=== PATIENT | female | born 1990 | race Caucasian/White ===

== ENCOUNTER 2017-12-31 15:52 | Emergency (ER) | payer BC, MEDICAID, OTHER ==
[~2017-12-31] VITALS: Ht 162.6 cm; Wt 68.1 kg
[~2017-12-31 15:52] MED LIST: ALBU8.5H8 INH; TRAM50TA2 PO
[2017-12-31 16:06] VITALS: BP 131/88
[2017-12-31] MEDS ORDERED: TRAM50TA2 PO (16:41)
[2017-12-31] MEDS ORDERED: ibuprofen tablet 400 MG TABLET PO ONE (17:15)
== END 2017-12-31 17:06 | disposition home or self-care (01) ==
LOC: ER 15:52
DX: S92.512A Displaced fracture of proximal phalanx of left lesser toe(s), initial encounter for closed fracture (principal); J45.909 Unspecified asthma, uncomplicated; Z88.6 Allergy status to analgesic agent; W22.03XA Walked into furniture, initial encounter; Y93.89 Activity, other specified; Y92.89 Other specified places as the place of occurrence of the external cause; Y99.8 Other external cause status
CPT/HCPCS: 73630; 99284

== ENCOUNTER 2018-04-03 19:40 | Emergency (ER) | payer MEDICAID ==
[~2018-04-03] VITALS: Ht 165.1 cm; Wt 70.5 kg
[2018-04-03] MEDS ORDERED: ondansetron/PF 4mg/2ml inj IV ONE (20:00)
[2018-04-03] MEDS ORDERED: normal saline 1000ML IV soln IVB ONE (20:00)
[2018-04-03 20:04] LABS: BASOPHILS % (AUTO) 0.3 % (0-1); EOSINOPHILS # (AUTO) 0.2 X10'3 (0-0.9); EOSINOPHILS % (AUTO) 1.4 % (0-6); HEMATOCRIT 39.7 % (35.0-45.0); HEMOGLOBIN 13.5 g/dl (12.0-16.0); LYMPHOCYTES # (AUTO) 2.4 X10'3 (1.1-4.8); LYMPHOCYTES % (AUTO) 21.2 % (21-51); MEAN CORPUSCULAR HEMOGLOBIN 28.8 PG (27.0-31.0); MEAN CORPUSCULAR VOLUME 84.8 FL (78-98); MEAN PLATELET VOLUME 8.3 FL (7.4-10.4); MONOCYTES # (AUTO) 0.7 X10'3 (0-0.9); MONOCYTES % (AUTO) 5.8 % (2-12); NEUTROPHILS # (AUTO) 8.1 X10'3 (1.8-7.7); NEUTROPHILS % (AUTO) 71.3 % (42-75); PLATELET COUNT 271 X10'3 (140-440); RED BLOOD COUNT 4.68 X10'6 (4.20-5.60); RED CELL DISTRIBUTION WIDTH 12.1 % (11.5-14.5); WHITE BLOOD COUNT 11.4 X10'3 (4.5-11.0)
[2018-04-03] MEDS ORDERED: iohexol 350MG/ML 100ml bottle IV ONE (20:08)
[2018-04-03 20:13] LABS: ALANINE AMINOTRANSFERASE 27 U/L (12-78); ALBUMIN/GLOBULIN RATIO 1.1 (1.1-1.5); ALKALINE PHOSPHATASE 48 IU/L (46-116); ANION GAP 12 (8-16); ASPARTATE AMINO TRANSFERASE 22 U/L (10-37); BILIRUBIN,TOTAL 0.2 MG/DL (0.1-1.0); BLOOD UREA NITROGEN 14 MG/DL (7-18); BUN/CREATININE RATIO 17.7 (6.6-38.0); CALCIUM 8.6 MG/DL (8.5-10.1); CHLORIDE 101 MMOL/L (99-107); CREATININE 0.79 MG/DL (0.40-0.90); GLUCOSE 122 MG/DL (70-104); POTASSIUM 3.8 MMOL/L (3.5-5.1); SODIUM 138 MMOL/L (135-145); TOTAL CARBON DIOXIDE 24.9 MMOL/L (24-32); TOTAL PROTEIN 7.7 G/DL (6.4-8.2); eGFR 87 ML/MIN
[2018-04-03 20:36] LABS: CLARITY,URINE CLEAR (Clear); COLOR,URINE YELLOW (Yellow); GLUCOSE, URINE NEGATIVE (Neg); KETONES,URINE NEGATIVE (Neg); LEUKOCYTE ESTERASE ,URINE NEGATIVE (Neg); NITRITES, URINE NEGATIVE (Neg); OCCULT BLOOD,URINE NEGATIVE (Neg); PROTEIN,URINE NEGATIVE (Neg); UROBILINOGEN,URINE 0.2 E.U/dL (0.2-1.0)
[2018-04-03 20:39] LABS: URINE HCG NEGATIVE (NEG)
[2018-04-03 20:48] LABS: UA COLLECTION TYPE CLN CATCH MIDSTREAM
[2018-04-03] MEDS ORDERED: dexamethasone sod phosphate 10mg/ml inj IV STA (21:08)
[2018-04-03] MEDS ORDERED: LORazepam 2 mg/ml vial IV ONE (21:10)
[2018-04-03] MEDS ORDERED: ketorolac trometh. 30mg/ml inj. IV ONE (21:10)
[2018-04-03] MEDS ORDERED: metoclopramide 5 mg/ml inj IV ONE (21:10)
[2018-04-03] MEDS ORDERED: ONDA4TAB6 PO (21:45)
[2018-04-03] MEDS ORDERED: KETO10TA2 PO (21:45)
[2018-04-03] MEDS ORDERED: SUMA100T PO (21:45)
[2018-04-03 21:58] VITALS: BP 112/61
== END 2018-04-03 21:59 | disposition home or self-care (01) ==
LOC: ER 19:41 → EEVIPCON 19:41 → ER 21:59
DX: G43.109 Migraine with aura, not intractable, without status migrainosus (principal); R42 Dizziness and giddiness; R53.1 Weakness; J45.909 Unspecified asthma, uncomplicated; Z88.5 Allergy status to narcotic agent; Z79.899 Other long term (current) drug therapy
CPT/HCPCS: 36415; 70496; 80053; 81003; 81025; 84443; 85025; 96361; 96374; 96375; 99284; J1100; J1885; J2060; J2405; J2765; J7030; Q9967

== ENCOUNTER 2019-01-24 13:13 | Emergency (ER) | payer OTHER, MEDICAID ==
[~2019-01-24] VITALS: Ht 165.1 cm; Wt 70.5 kg
[~2019-01-24 13:13] MED LIST changes: +KETO10TA2 PO; +ONDA4TAB6 PO
[2019-01-24] MEDS ORDERED: diphenhydrAMINE 50 mg/ml inj IV ONE (13:30)
[2019-01-24] MEDS ORDERED: ketorolac trometh inj. 60 MG/2 ML VIAL IM ONE (13:30)
[2019-01-24] MEDS ORDERED: cloNIDine 0.1 mg tablet PO ONE (13:30)
[2019-01-24] MEDS ORDERED: LORazepam 1 MG tablet PO ONE (13:30)
[2019-01-24] MEDS ORDERED: metoclopramide 5 mg/ml inj IM ONE (13:30)
[2019-01-24] MEDS ORDERED: normal saline 1000ml 1,000 ML IV ONE (14:30)
[2019-01-24 15:02] VITALS: BP 117/69
--- NOTE | 2019-01-24 15:19 | NUR ---
PT FEELING MUCH BETTER, READY TO GO HOME. FAMILY AT BEDSIDE FOR RIDE HOME.
== END 2019-01-24 15:24 | disposition home or self-care (01) ==
LOC: ER 13:14 → EEVIPCON 13:14 → ER 15:24
DX: G43.909 Migraine, unspecified, not intractable, without status migrainosus (principal); J45.909 Unspecified asthma, uncomplicated; F10.99 Alcohol use, unspecified with unspecified alcohol-induced disorder; Z88.5 Allergy status to narcotic agent; Z79.899 Other long term (current) drug therapy; Y90.9 Presence of alcohol in blood, level not specified
CPT/HCPCS: 96372; 96374; 99283; J1200; J1885; J2765; J7030

== ENCOUNTER 2019-02-14 06:36 | Outpatient (CLI) | payer OTHER, MEDICAID ==
[2019-02-14 07:12] LABS: BASOPHILS % (AUTO) 0.2 % (0-1); EOSINOPHILS # (AUTO) 0.1 X10'3 (0-0.9); EOSINOPHILS % (AUTO) 1.7 % (0-6); HEMATOCRIT 39.6 % (35.0-45.0); HEMOGLOBIN 13.5 g/dl (12.0-16.0); LYMPHOCYTES # (AUTO) 2.1 X10'3 (1.1-4.8); LYMPHOCYTES % (AUTO) 37.3 % (21-51); MEAN CORPUSCULAR HEMOGLOBIN 29.8 PG (27.0-31.0); MEAN CORPUSCULAR HGB CONC 34.2 g/dL (33.0-36.5); MEAN CORPUSCULAR VOLUME 87.1 FL (78-98); MEAN PLATELET VOLUME 8.4 FL (7.4-10.4); MONOCYTES # (AUTO) 0.5 X10'3 (0-0.9); MONOCYTES % (AUTO) 8.6 % (2-12); NEUTROPHILS % (AUTO) 52.2 % (42-75); PLATELET COUNT 212 X10'3 (140-440); RED BLOOD COUNT 4.55 X10'6 (4.20-5.60); RED CELL DISTRIBUTION WIDTH 12.6 % (11.5-14.5); WHITE BLOOD COUNT 5.7 X10'3 (4.5-11.0)
[2019-02-14 07:18] LABS: ANION GAP 8 (8-16); CHLORIDE 107 MMOL/L (99-107); GLUCOSE 98 MG/DL (70-104); POTASSIUM 4.1 MMOL/L (3.5-5.1); SODIUM 142 MMOL/L (135-145); TOTAL CARBON DIOXIDE 27.1 MMOL/L (24-32)
[2019-02-14 07:19] LABS: ALANINE AMINOTRANSFERASE 40 U/L (12-78); ALBUMIN 3.9 G/DL (3.4-5.0); ALBUMIN/GLOBULIN RATIO 1.1 (1.1-1.5); ALKALINE PHOSPHATASE 51 IU/L (46-116); ASPARTATE AMINO TRANSFERASE 23 U/L (10-37); BILIRUBIN,TOTAL 0.1 MG/DL (0.1-1.0); BLOOD UREA NITROGEN 14 MG/DL (7-18); BUN/CREATININE RATIO 21.5 (6.6-38.0); CALCIUM 8.9 MG/DL (8.5-10.1); CREATININE 0.65 MG/DL (0.40-0.90); TOTAL PROTEIN 7.4 G/DL (6.4-8.2); eGFR > 90 ML/MIN
== END 2019-02-14 23:59 | disposition home or self-care (01) ==
LOC: LAB 06:36
PROVIDERS: ATTEND Physician Assistant
DX: R14.0 Abdominal distension (gaseous) (principal); J45.909 Unspecified asthma, uncomplicated
CPT/HCPCS: 36415; 80053; 85025

== ENCOUNTER 2019-07-14 12:57 | Inpatient (IN) | payer OTHER, MEDICAID ==
[~2019-07-14] VITALS: Ht 165.1 cm; Wt 70.5 kg
[2019-07-14 13:26] LABS: BASOPHILS % (AUTO) 0.1 % (0-1); EOSINOPHILS % (AUTO) 0.9 % (0-6); HEMATOCRIT 38.9 % (35.0-45.0); HEMOGLOBIN 13.1 g/dl (12.0-16.0); LYMPHOCYTES % (AUTO) 38.9 % (21-51); MEAN CORPUSCULAR HEMOGLOBIN 29.1 PG (27.0-31.0); MEAN CORPUSCULAR HGB CONC 33.7 g/dL (33.0-36.5); MEAN CORPUSCULAR VOLUME 86.3 FL (78-98); MEAN PLATELET VOLUME 8.2 FL (7.4-10.4); MONOCYTES # (AUTO) 0.3 X10'3 (0-0.9); MONOCYTES % (AUTO) 6.3 % (2-12); NEUTROPHILS # (AUTO) 2.8 X10'3 (1.8-7.7); NEUTROPHILS % (AUTO) 53.8 % (42-75); PLATELET COUNT 228 X10'3 (140-440); RED CELL DISTRIBUTION WIDTH 12.5 % (11.5-14.5); WHITE BLOOD COUNT 5.2 X10'3 (4.5-11.0)
[2019-07-14 13:27] LABS: CLARITY,URINE CLEAR (Clear); COLOR,URINE YELLOW (Yellow); GLUCOSE, URINE NEGATIVE (Neg); KETONES,URINE NEGATIVE (Neg); LEUKOCYTE ESTERASE ,URINE NEGATIVE (Neg); NITRITES, URINE NEGATIVE (Neg); OCCULT BLOOD,URINE TRACE-INTACT (Neg); PH,URINE 5.5 (4.8-8.0); PROTEIN,URINE NEGATIVE (Neg); UROBILINOGEN,URINE 0.2 E.U/dL (0.2-1.0)
[2019-07-14 13:28] LABS: URINE HCG NEGATIVE (NEG)
[2019-07-14 13:32] LABS: UA COLLECTION TYPE CLN CATCH MIDSTREAM
[2019-07-14 13:33] LABS: BACTERIA,URINE NONE SEEN /HPF (Neg); MUCUS STRANDS FEW /LPF (Neg); RBC,URINE 0-2 /HPF (0-2); SQUAMOUS EPITHELIAL CELL,UR FEW /LPF (FEW); WBC,URINE 0-4 /HPF (0-4)
[2019-07-14 13:40] LABS: ALANINE AMINOTRANSFERASE 23 U/L (12-78); ALBUMIN 4.2 G/DL (3.4-5.0); ALBUMIN/GLOBULIN RATIO 1.2 (1.1-1.5); ALKALINE PHOSPHATASE 44 IU/L (46-116); ANION GAP 8 (8-16); ASPARTATE AMINO TRANSFERASE 19 U/L (10-37); BILIRUBIN,TOTAL 0.2 MG/DL (0.1-1.0); BLOOD UREA NITROGEN 13 MG/DL (7-18); BUN/CREATININE RATIO 16.7 (6.6-38.0); CHLORIDE 106 MMOL/L (99-107); CREATININE 0.78 MG/DL (0.40-0.90); GLUCOSE 92 MG/DL (70-104); LIPASE 142 U/L (73-393); POTASSIUM 3.8 MMOL/L (3.5-5.1); SODIUM 142 MMOL/L (135-145); TOTAL CARBON DIOXIDE 28.5 MMOL/L (24-32); TOTAL PROTEIN 7.6 G/DL (6.4-8.2); eGFR 87 ML/MIN
[2019-07-14] MEDS ORDERED: normal saline 1000ML IV soln IVB ONE (13:55)
[2019-07-14] MEDS ORDERED: ketorolac trometh. 30mg/ml inj. IV ONE (13:55)
[2019-07-14] MEDS ORDERED: ondansetron/PF 4mg/2ml inj IV ONE (13:55)
[2019-07-14] MEDS ORDERED: magnesium 4gm in 100ml NS 100 ML IV PRN (14:00)
[2019-07-14] MEDS ORDERED: magnesium 2GM in 50ml NS 50 ML IV PRN (14:00)
[2019-07-14] MEDS ORDERED: ondansetron/PF 4mg/2ml inj IV PRN (14:00)
[2019-07-14] MEDS ORDERED: magnesium Cl slow-release 64mg tablet PO PRN (14:00)
[2019-07-14] MEDS ORDERED: acetaminophen 325mg tablet PO PRN (14:00)
[2019-07-14] MEDS ORDERED: potassium Cl 20 mEq SR tablet PO PRN ×2 (14:00)
[2019-07-14] MEDS ORDERED: potassium CL 10mEq/100ml bag 100 ML IV PRN ×2 (14:00)
[2019-07-14] MEDS ORDERED: NO HOME MEDS (14:14)
[2019-07-14] MEDS ORDERED: ringers solution, lacted 1,000 ML IV ONE (14:15)
--- NOTE | 2019-07-14 14:24 | NUR ---
Discussed pt's increasing anxiety with TYLER Rubin; new order for Ativan 0.5mg received.
[2019-07-14] MEDS ORDERED: LORazepam 2 mg/ml vial IV ONE (14:25)
--- NOTE | 2019-07-14 14:39 | NUR ---
relieving RN for break, 1st liter NS infusing w/o, pt is resting quietly on bed, waiting for bed assignment
--- NOTE | 2019-07-14 14:51 | NUR ---
Patient in room ED 15. I have received report from CHRISTINA Prado and had the opportunity to ask questions and assume patient care.
--- NOTE | 2019-07-14 15:00 | NUR ---
Pt arrived to surgical floor via wheelchair
[2019-07-14 15:10] VITALS: BP 123/67
[2019-07-14] MEDS: normal saline 1000ml 1,000 ML IV SCH ×2 (15:35→23:48)
--- NOTE | 2019-07-14 15:56 | NUR ---
Pt refused 2 RN skin check. States no impaired skin integrity. Pt also refused MRSA nasal swab.
[2019-07-14 18:00] VITALS: BP 113/72
--- NOTE | 2019-07-14 18:35 | NUR ---
Problems reprioritized. Patient report given, questions answered & plan of care reviewed with CHRISTINA Edwards.
--- NOTE | 2019-07-14 18:42 | NUR ---
Patient in room [facility]. I have received report from Fabiola VASQUEZ and had the opportunity to ask questions and assume patient care.
[2019-07-14] MEDS: K and/or MAG REPLACEMENT MC SCH (20:00)
[2019-07-14] MEDS ORDERED: Melatonin 3mg tablet PO SCH (21:00)
[2019-07-15] VITALS (17 sets, daily range): BP systolic 102–147; BP diastolic 44–87
[2019-07-15] MEDS: ketorolac tromethamine 15mg/ml inj. IV PRN ×2 (04:55→09:30)
[2019-07-15] MEDS ORDERED: INDOCYANINE GREEN 25 MG/10 ML VIAL IV ONE (06:00)
[2019-07-15] MEDS ORDERED: famotidine 20mg tablet PO ONE ×2 (06:00→07:20)
[2019-07-15 06:08] LABS: BASOPHILS % (AUTO) 0.1 % (0-1); EOSINOPHILS # (AUTO) 0.1 X10'3 (0-0.9); EOSINOPHILS % (AUTO) 2.5 % (0-6); HEMATOCRIT 35.4 % (35.0-45.0); HEMOGLOBIN 12.1 g/dl (12.0-16.0); LYMPHOCYTES % (AUTO) 48.6 % (21-51); MEAN CORPUSCULAR HEMOGLOBIN 29.7 PG (27.0-31.0); MEAN CORPUSCULAR HGB CONC 34.2 g/dL (33.0-36.5); MEAN CORPUSCULAR VOLUME 86.7 FL (78-98); MEAN PLATELET VOLUME 8.5 FL (7.4-10.4); MONOCYTES # (AUTO) 0.3 X10'3 (0-0.9); MONOCYTES % (AUTO) 8.1 % (2-12); NEUTROPHILS # (AUTO) 1.7 X10'3 (1.8-7.7); NEUTROPHILS % (AUTO) 40.7 % (42-75); PLATELET COUNT 187 X10'3 (140-440); RED BLOOD COUNT 4.08 X10'6 (4.20-5.60); RED CELL DISTRIBUTION WIDTH 12.3 % (11.5-14.5); WHITE BLOOD COUNT 4.1 X10'3 (4.5-11.0)
--- NOTE | 2019-07-15 06:09 | NUR ---
Problems reprioritized. Patient report given, questions answered & plan of care reviewed with Maribell VASQUEZ.
--- NOTE | 2019-07-15 06:11 | NUR ---
Patient in room [facility]. I have received report from CHRISTINA BURCH and had the opportunity to ask questions and assume patient care.
[2019-07-15 06:21] LABS: ALBUMIN 3.2 G/DL (3.4-5.0); ANION GAP 5 (8-16); BLOOD UREA NITROGEN 11 MG/DL (7-18); BUN/CREATININE RATIO 17.5 (6.6-38.0); CALCIUM 8.2 MG/DL (8.5-10.1); CHLORIDE 112 MMOL/L (99-107); CREATININE 0.63 MG/DL (0.40-0.90); GLUCOSE 89 MG/DL (70-104); POTASSIUM 3.7 MMOL/L (3.5-5.1); SODIUM 143 MMOL/L (135-145); TOTAL CARBON DIOXIDE 26.4 MMOL/L (24-32); eGFR > 90 ML/MIN
[2019-07-15] MEDS ORDERED: BUPIVAcaine/PF 2.5 mg/ml (0.25%) 30ml vial ONE (07:13)
[2019-07-15] MEDS ORDERED: LIDOcaine 1% 30ml preserv. free vial ONE (07:13)
[2019-07-15] MEDS ORDERED: ringers solution, lacted 1,000 ML IV SCH ×2 (07:37→09:20)
[2019-07-15] MEDS ORDERED: labetalol 20mg/4ml (5mg/ml) syringe IV PRN (07:40)
[2019-07-15] MEDS ORDERED: morphine 4 MG/ML inj SYRINge IV PRN (07:40)
[2019-07-15] MEDS ORDERED: ondansetron/PF 4mg/2ml inj IV PRN ×2 (07:40→09:20)
[2019-07-15] MEDS ORDERED: hydrALAZINE 20mg/ml inj. IV PRN (07:40)
[2019-07-15] MEDS ORDERED: fentaNYL/PF 50MCG/1 ML 2ML syringe IV PRN ×2 (07:40)
[2019-07-15] MEDS ORDERED: morphine 2 MG/ML inj. syringe IV PRN (07:40)
[2019-07-15] MEDS ORDERED: midazolam 2 mg/2 ml injection ONE (07:47)
[2019-07-15] MEDS ORDERED: fentaNYL/PF 50MCG/1 ML 2ML syringe ONE (07:47)
[2019-07-15] MEDS ORDERED: dexamethasone sod phosphate 4mg/ml inj. ONE (07:49)
[2019-07-15] MEDS ORDERED: neostigmine methylsulfate 1 MG/ML 10ml vial ONE (07:49)
[2019-07-15] MEDS ORDERED: propofol inj 20 ML IV ONE (07:49)
[2019-07-15] MEDS ORDERED: glycopyrrolate 0.2mg/ml inj ONE (07:50)
[2019-07-15] MEDS ORDERED: rocuronium 10mg/ml inj IV ONE (07:50)
[2019-07-15] MEDS ORDERED: ondansetron/PF 4mg/2ml inj ONE (07:50)
[2019-07-15] MEDS ORDERED: LIDOcaine 2% (20mg/ml) 5ml vial ONE (07:50)
[2019-07-15] MEDS ORDERED: MIDAZolam 5mg/ml 2ml vial ONE (07:55)
[2019-07-15] MEDS ORDERED: sevoflurane 250ml liquid IH ONE (07:55)
[2019-07-15] MEDS: K and/or MAG REPLACEMENT MC SCH (08:00)
--- NOTE | 2019-07-15 09:13 | NUR ---
Received from OR via BED, accompanied by Anesthesiologist DR REDDY and report given by Anesthesiologist. PT DROWSY, ANXIOUS, NAUSEATED, ABDOMEN W/4 LAP SITES W/BANDAIDS CDI. Addendum: 07/15/19 at 0953 by Maile Segura RN Amended: Links added.
[2019-07-15] MEDS ORDERED: proMETHazine 25mg rectal suppository RC PRN ×3 (09:15→09:20)
[2019-07-15] MEDS ORDERED: ibuprofen tablet 400 MG TABLET PO PRN (09:15)
[2019-07-15] MEDS ORDERED: acetaminophen 325mg tablet PO PRN (09:15)
[2019-07-15] MEDS ORDERED: proCHLORperazine 10 MG/2 ml inj IV PRN (09:20)
[2019-07-15] MEDS ORDERED: ketorolac trometh. 30mg/ml inj. IV ONE (09:20)
[2019-07-15] MEDS ORDERED: acetaminophen 1,000mg/100ml IV 100 ML IV PRN (09:20)
[2019-07-15] MEDS ORDERED: proCHLORperazine 10 MG/2 ml inj IV ONE (09:20)
--- NOTE | 2019-07-15 10:02 | NUR ---
Patient in room [facility]. I have received report from CHRISTINA ALLAN FROM [facility] and had the opportunity to ask questions and assume patient care.
--- NOTE | 2019-07-15 10:23 | NUR ---
Report called to receiving nurse. Transferred via BED, NO Belongings, NAUSEA SUBSIDED, PT STATES HAS SOME DISCOMFORT BUT DECLINES MEDICATION AT THIS TIME, RECEIVING RN AT BEDSIDE TO RECEIVE PT, BLL, CALL LIGHT GIVEN, SIDE RAILS UP X 2. Special Issues communicated to receiving nurse. YES. Addendum: 07/15/19 at 1033 by Maile Segura RN Amended: Links added.
[2019-07-15] MEDS: normal saline 1000ml 1,000 ML IV SCH (10:45)
[2019-07-15] MEDS ORDERED: traMADol 50MG tablet PO PRN (11:15)
[2019-07-15] MEDS ORDERED: IBUP-1984 PO (11:17)
[2019-07-15] MEDS ORDERED: TRAM50TA2 PO (11:17)
[2019-07-15] MEDS ORDERED: acetaminophen 1,000mg/100ml IV 100 ML IV SCH (14:00)
--- NOTE | 2019-07-15 14:00 | NUR ---
PATIENT STABLE AND APPROPRIATE FOR DISCHARGE, IV TAKEN OUT, EDUCATION GIVEN, SCRIPT FOR PAIN MEDS SENT WITH PATIENT, OTHER NEW MEDS SENT TO PREFERRED PHARMACY, ALL BELONGINGS SENT WITH PATIENT, PATIENT TAKEN TO LOBBY IN A WHEEL CHAIR TO AN AWAITING CAR WHERE FAMILY MEMBER WILL TAKE PATIENT HOME
== END 2019-07-15 14:00 | disposition home or self-care (01) | DRG 419 ==
LOC: ER 12:58 → ED HOLD 13:57 → EEVIPCON 13:57 → SUR 3N 15:04
PROVIDERS: ADMIT Internal Medicine; ATTEND Surgery
PROC: 8E0W4CZ Robotic Assisted Procedure of Trunk Region, Percutaneous Endoscopic Approach (ICD-10-PCS; 2019-07-15)
PROC: BF131ZZ Fluoroscopy of Gallbladder and Bile Ducts using Low Osmolar Contrast (ICD-10-PCS; 2019-07-15)
PROC: 0FT44ZZ Resection of Gallbladder, Percutaneous Endoscopic Approach (ICD-10-PCS; principal; 2019-07-15 07:55)
DX: K80.00 Calculus of gallbladder with acute cholecystitis without obstruction (principal); J45.909 Unspecified asthma, uncomplicated; G43.909 Migraine, unspecified, not intractable, without status migrainosus; Z88.5 Allergy status to narcotic agent
CPT/HCPCS: 36415; 76700; 80048; 80053; 81001; 81025; 82948; 83690; 83735; 85025; 99285; A4215; A4618; G0378; J0131; J0780; J1100; J1885; J2001; J2060; J2250; J2405; J2704; J2710; J3010; J3490; J7030; J7120

== ENCOUNTER 2019-12-09 15:47 | Emergency (ER) | payer MEDICAID, OTHER ==
[~2019-12-09] VITALS: Ht 165.1 cm; Wt 68.2 kg
[~2019-12-09 15:47] MED LIST changes: -ALBU8.5H8 INH; +IBUP-1984 PO; -KETO10TA2 PO; +NO HOME MEDS; -ONDA4TAB6 PO
[2019-12-09 16:02] VITALS: BP 133/76
== END 2019-12-09 16:36 | disposition home or self-care (01) ==
LOC: ER 15:47 → EEVIPCON 15:47 → ER 16:36
DX: S61.031A Puncture wound without foreign body of right thumb without damage to nail, initial encounter (principal); J45.909 Unspecified asthma, uncomplicated; Z88.5 Allergy status to narcotic agent; Z79.899 Other long term (current) drug therapy; W46.0XXA Contact with hypodermic needle, initial encounter; Y93.89 Activity, other specified; Y92.89 Other specified places as the place of occurrence of the external cause; Y99.8 Other external cause status
CPT/HCPCS: 99281

== ENCOUNTER 2020-02-14 08:10 | Emergency (ER) | payer OTHER ==
[~2020-02-14] VITALS: Ht 165.1 cm; Wt 68.2 kg
[2020-02-14 08:32] VITALS: BP 135/81
== END 2020-02-14 08:38 | disposition home or self-care (01) ==
LOC: EEVIPCON 08:10 → ER 08:11
DX: R43.9 Unspecified disturbances of smell and taste (principal); R51.9 Headache, unspecified; R09.81 Nasal congestion; G43.909 Migraine, unspecified, not intractable, without status migrainosus; J45.909 Unspecified asthma, uncomplicated; Z87.448 Personal history of other diseases of urinary system; Z79.899 Other long term (current) drug therapy; Z20.828 Contact with and (suspected) exposure to other viral communicable diseases
CPT/HCPCS: 99282

== ENCOUNTER 2020-03-01 11:52 | Outpatient (CLI) | payer OTHER | END 2020-03-01 23:59 | disposition home or self-care (01) | LOC: LAB 11:52 | DX: Z53.9 Procedure and treatment not carried out, unspecified reason (principal) ==

== ENCOUNTER 2020-09-06 10:19 | Emergency (ER) | payer BC, MEDICAID ==
[~2020-09-06] VITALS: Ht 165.1 cm; Wt 68.0 kg
[2020-09-06 10:23] VITALS: BP 122/79
--- NOTE | 2020-09-06 10:26 | NUR ---
systems technologist at bedside
== END 2020-09-06 10:56 | disposition home or self-care (01) ==
LOC: EEVIPCON 10:19 → ER 10:19
DX: S63.619A Unspecified sprain of unspecified finger, initial encounter (principal); G43.909 Migraine, unspecified, not intractable, without status migrainosus; J45.909 Unspecified asthma, uncomplicated; Z87.440 Personal history of urinary (tract) infections; Z72.89 Other problems related to lifestyle; Z79.899 Other long term (current) drug therapy; X58.XXXA Exposure to other specified factors, initial encounter; Y93.89 Activity, other specified; Y92.89 Other specified places as the place of occurrence of the external cause; Y99.8 Other external cause status
CPT/HCPCS: 73140; 99283

== ENCOUNTER 2021-11-18 08:50 | Emergency (ER) | payer BC, OTHER ==
[~2021-11-18] VITALS: Ht 162.6 cm; Wt 68.2 kg
[2021-11-18] MEDS ORDERED: triamcinolone acetonide 40mg/ml inj IM ONE (08:55)
[2021-11-18] MEDS ORDERED: BUPIVAcaine/PF 2.5 mg/ml (0.25%) 30ml vial IJ ONE (08:55)
[2021-11-18 08:59] VITALS: BP 130/82
[2021-11-18] MEDS ORDERED: KETO10TA2 PO (09:18)
[2021-11-18] MEDS ORDERED: ORPH100T2 PO (09:18)
== END 2021-11-18 09:59 | disposition home or self-care (01) ==
LOC: ER 08:50 → EEVIPCON 08:50 → ER 09:59
DX: S46.911A Strain of unspecified muscle, fascia and tendon at shoulder and upper arm level, right arm, initial encounter (principal); M62.838 Other muscle spasm; M41.115 Juvenile idiopathic scoliosis, thoracolumbar region; M54.2 Cervicalgia; R53.1 Weakness; G43.909 Migraine, unspecified, not intractable, without status migrainosus; J45.909 Unspecified asthma, uncomplicated; Z87.440 Personal history of urinary (tract) infections; Z72.89 Other problems related to lifestyle; Z88.8 Allergy status to other drugs, medicaments and biological substances; Z79.899 Other long term (current) drug therapy; X58.XXXA Exposure to other specified factors, initial encounter; Y93.89 Activity, other specified; Y92.89 Other specified places as the place of occurrence of the external cause; Y99.8 Other external cause status
CPT/HCPCS: 20553; 99284